=== PATIENT | male | born 1995 | race Caucasian/White ===

== ENCOUNTER 2018-01-31 21:20 | Emergency (ER) | payer BC ==
--- NOTE | 2018-01-31 22:34 | CT ---
CT BRAIN WITHOUT CONTRAST: 01/31/18 HISTORY: Trauma. Laceration. COMPARISON: None. FINDINGS: There is air fluid level left maxillary sinus with fluid attenuation. There is also extensive mucosal thickening left frontal sinus as well as the anterior left ethmoids. No acute intracranial infarct or hemorrhage. No midline shift or mass effect. Ventricular size and ex tra-axial CSF spaces are normal. The calvarium is intact. IMPRESSION: 1. No acute intracranial abnormality. 2. Left maxillary, frontal and anterior ethmoid sinusitis. POS: [facility]
== END 2018-01-31 22:44 | disposition home or self-care (01) ==
LOC: SCSER 21:20
DX: S01.111A Laceration without foreign body of right eyelid and periocular area, initial encounter (principal); W51.XXXA Accidental striking against or bumped into by another person, initial encounter; Y93.67 Activity, basketball
CPT/HCPCS: 12013; 70450